=== PATIENT | female | born 1985 | race Caucasian/White ===

== ENCOUNTER 2016-12-26 14:56 | Emergency (ER) | payer MEDICAID ==
[2016-12-26 15:13] VITALS: TEMP 99.1; O2SAT 98
[2016-12-26] MEDS ORDERED: Sodium Chloride 0.9% 1,000 ML IV STA (15:44)
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
[2016-12-26 16:19] LABS: BASO % 0.8 % (0.0-2.0); EOS # 0.1 K/uL (0.0-0.7); EOS % 2.8 % (0.0-4.0); HEMATOCRIT 35.2 % (34.0-47.0); LYMPH # 1.1 K/uL (1.0-4.3); LYMPH % 21.4 % (20.0-40.0); MEAN CELL VOLUME 89.7 fl (81.0-99.0); MEAN CORPUSCULAR HEMOGLOBIN 30.8 pg (27.0-31.0); MEAN CORPUSCULAR HGB CONC 34.4 g/dL (33.0-37.0); MEAN PLATELET VOLUME 6.6 fl (7.2-11.7); MONO # 0.5 K/uL (0.0-0.8); MONO % 9.6 % (0.0-10.0); NEUT # 3.3 K/uL (1.8-7.0); NEUT % 65.4 % (50.0-75.0); RED CELL DISTRIBUTION WIDTH 13.7 % (11.5-14.5); WHITE BLOOD COUNT 5.1 K/uL (4.8-10.8)
[2016-12-26 16:57] LABS: ALB/GLOB RATIO 1.2 (1.0-2.1); BLOOD UREA NITROGEN 10 mg/dl (7-17); CALCIUM 8.5 mg/dL (8.4-10.2); CARBON DIOXIDE 22 mmol/L (22-30); CHLORIDE 109 mmol/L (98-107); GFR AFRICAN-AMERICAN > 60; GLUCOSE,RANDOM 83 mg/dL (65-105); SODIUM 140 mmol/l (132-148); TOTAL PROTEIN 7.5 G/DL (6.3-8.2)
[2016-12-26 16:58] LABS: ALKALINE PHOSPHATASE 71 U/L (38-126); ALT/SGPT 21 U/L (9-52); AST/SGOT 33 U/L (14-36); BILIRUBIN,TOTAL 1.1 mg/dl (0.2-1.3); LIPASE 56 U/L (23-300)
--- NOTE | 2016-12-26 16:58 | RAD ---
HISTORY: pain COMPARISON: Comparison made with prior chest radiograph 05/03/2015 TECHNIQUE: Frontal and lateral FINDINGS: LUNGS: No active pulmonary disease. PLEURA: No significant pleural effusion identified. No pneumothorax apparent. CARDIOVASCULAR: Normal. OSSEOUS STRUCTURES: No significant abnormalities. VISUALIZED UPPER ABDOMEN: Normal. OTHER FINDINGS: None. IMPRESSION: No active disease.
[2016-12-26 17:01] LABS: POTASSIUM 5.2 MMOL/L (3.6-5.0)
[2016-12-26 18:24] VITALS: BP 128/78; PULSE 78; RESP 19
--- NOTE | 2016-12-27 08:40 | CARD ---
APPROVED REPORT EKG Measurement Heart [id number] <Conclusion> Normal sinus rhythm Normal ECG
== END 2016-12-26 18:50 | disposition home or self-care (01) ==
LOC: H.ER 14:56
DX: R07.89 Other chest pain (principal); K21.9 Gastro-esophageal reflux disease without esophagitis
CPT/HCPCS: 71020; 80053; 81025; 83690; 84484; 85025; 93005; 96374; 99282; J1885; J7040

== ENCOUNTER 2017-07-11 16:32 | Emergency (ER) | payer MEDICAID ==
[2017-07-11 16:44] VITALS: RESP 18; TEMP 97.9; O2SAT 98
[2017-07-11] MEDS ORDERED: Sodium Chloride 0.9% 1,000 ML IV STA (17:07)
--- NOTE | 2017-07-11 17:09 | ED PDOC ---
HPI: Abdomen Time Seen by Provider: 07/11/17 16:54 Chief Complaint (Nursing): Abdominal Pain History Per: Patient Onset/Duration Of Symptoms: Days (1) Current Symptoms Are (Timing): Still Present Severity: Mild Pain Scale Rating Of: 2 Location Of Pain/Discomfort: Epigastric Quality Of Discomfort: Burning Associated Symptoms: Nausea, Vomiting. denies: Fever, Diarrhea Exacerbating Factors: None Alleviating Factors: None Additional Complaint(s): Burning epigastric abd pain assoc withy blood tinged vomiting this AM. Denies fever or diarrhea. Past Medical History Vital Signs: Last Vital Signs Temp 97.9 F 07/11/17 16:43 Pulse 103 H 07/11/17 16:43 Resp 18 07/11/17 16:43 BP 118/76 07/11/17 16:43 Pulse Ox 98 07/11/17 17:09 - Medical History PMH: Gastrointestinal Ulcer (Past Hx of gastric ulcer years ago), GERD Denies: Diabetes, HTN, Hypercholesterolemia - Family History Family History: States: Unknown Family Hx - Home Medications Home Medications: Ambulatory Orders Medication Instructions Recorded Omeprazole [Prilosec] 20 mg PO DAILY #30 cap 01/10/14 Ondansetron ODT [Zofran ODT] 4 mg PO Q6 PRN #15 odt 01/10/14 traMADol [Ultram] 50 mg PO QID PRN #20 tab 01/10/14 Amoxicillin/Potassium Clav 1 tab PO TID #30 tab 05/03/15 [Augmentin 500 mg-125 mg] Promethazine/Codeine 5 ml PO Q8 #1 udc 05/03/15 [Codeine/Promethazine 10 MG/5 Ml-6.25 MG/5 Ml] Erythromycin 0.5% [Erythromycin 3.5 gm LEFTEYE QID #3 tube 04/13/16 0.5% Oint] Ketorolac Tromethamine [Acular] 1 drop LEFTEYE Q6 PRN #1 bottle 04/13/16 Ibuprofen [Motrin] 600 mg PO TID 7 Days tab 12/26/16 Ondansetron [Zofran] 4 mg PO Q8H #10 tab 07/11/17 Pantoprazole Sodium [Protonix] 40 mg PO DAILY #30 tablet. 07/11/17 - Allergies Allergies/Adverse Reactions: Allergies Allergy/AdvReac Type Severity Reaction Status Date / Time mushroom Allergy Mild ITCHING Verified 04/13/16 17:07 stone Allergy RASH Verified 04/13/16 17:07 Review of Systems ROS Statement: Except As Marked, All Systems Reviewed And Found Negative Gastrointestinal: Positive for: Nausea, Vomiting, Abdominal Pain Physical Exam - Reviewed Nursing Documentation Reviewed: Yes Vital Signs Reviewed: Yes - Physical Exam Appears: Positive for: Non-toxic, No Acute Distress Head Exam: Positive for: ATRAUMATIC, NORMAL INSPECTION, NORMOCEPHALIC Skin: Positive for: Normal Color, Warm, DRY Eye Exam: Positive for: EOMI, Normal appearance, PERRL ENT: Positive for: Normal ENT Inspection Neck: Positive for: Normal, Painless ROM Cardiovascular/Chest: Positive for: Regular Rate, Rhythm Respiratory: Positive for: CNT, Normal Breath Sounds Gastrointestinal/Abdominal: Positive for: Bowel Sounds, Soft, Tenderness ( epigastric) Back: Positive for: Normal Inspection Extremity: Positive for: Normal ROM Neurologic/Psych: Positive for: Alert, Oriented - Laboratory Results Result Diagrams: 07/11/17 17:35 07/11/17 17:35 - ECG O2 Sat by Pulse Oximetry: 98 - Progress Re-evaluation Time: 20:10 Condition: Improved Disposition - Clinical Impression Clinical Impression: Gastritis - Patient ED Disposition Is Patient to be Admitted: No - Disposition Referrals: Annabella Javier MD [Medical Doctor] - Disposition: Routine/Home Disposition Time: 20:11 Condition: FAIR Prescriptions: Ondansetron [Zofran] 4 mg PO Q8H #10 tab Pantoprazole Sodium [Protonix] 40 mg PO DAILY #30 tablet.dr Instructions: Gastritis Forms: [employer] (Armenian)
[2017-07-11 17:52] LABS: BASO % 0.6 % (0.0-2.0); EOS # 0.2 K/uL (0.0-0.7); EOS % 2.6 % (0.0-4.0); HEMOGLOBIN 11.8 g/dL (12.0-16.0); LYMPH # 1.5 K/uL (1.0-4.3); LYMPH % 20.6 % (20.0-40.0); MEAN CELL VOLUME 89.3 fl (81.0-99.0); MEAN CORPUSCULAR HEMOGLOBIN 29.4 pg (27.0-31.0); MEAN CORPUSCULAR HGB CONC 32.9 g/dL (33.0-37.0); MONO # 0.5 K/uL (0.0-0.8); NEUT # 5.2 K/uL (1.8-7.0); NEUT % 69.2 % (50.0-75.0); RBC 4.02 Mil/uL (3.80-5.20); RED CELL DISTRIBUTION WIDTH 14.3 % (11.5-14.5); WHITE BLOOD COUNT 7.5 K/uL (4.8-10.8)
[2017-07-11 18:11] LABS: ALB/GLOB RATIO 1.2 (1.0-2.1); ALBUMIN 3.8 g/dL (3.5-5.0); ALT/SGPT 58 U/L (9-52); AST/SGOT 42 U/L (14-36); BLOOD UREA NITROGEN 12 mg/dl (7-17); CALCIUM 9.3 mg/dL (8.4-10.2); GFR AFRICAN-AMERICAN > 60; GFR NON-AFRICAN AMERICAN > 60; LIPASE 87 U/L (23-300)
[2017-07-11 20:37] VITALS: BP 106/50
[2017-07-11 20:44] VITALS: PULSE 85
== END 2017-07-11 20:43 | disposition home or self-care (01) ==
LOC: H.ER 16:32
DX: K29.70 Gastritis, unspecified, without bleeding (principal); K21.9 Gastro-esophageal reflux disease without esophagitis
CPT/HCPCS: 80053; 81025; 83690; 85025; 96374; 99283; J7040